=== PATIENT | male | born 1985 | race Caucasian/White ===

== ENCOUNTER → 2017-03-30 | Day surgery (SDC) | payer OTHER ==
[~2017-03-30] VITALS: Ht 182.9 cm; Wt 68.0 kg
[2017-03-30 08:39] VITALS: BP 114/69
[2017-03-30 11:21] VITALS: BP 100/64
== END | disposition home or self-care (01) ==
LOC: GI 08:25 → OR 10:30 → GI 10:30
PROVIDERS: Internal Medicine Gastroenterology
PROC: 0DB68ZX Excision of Stomach, Via Natural or Artificial Opening Endoscopic, Diagnostic (ICD-10-PCS; principal; 2017-03-30 09:30)
DX: R10.9 Unspecified abdominal pain (principal); R11.2 Nausea with vomiting, unspecified
CPT/HCPCS: 43235; J1200; J1610; J2250; J2310; J3010; J3490

== ENCOUNTER 2018-03-26 07:08 | Day surgery (SDC) | payer OTHER ==
[~2018-03-26] VITALS: Ht 182.9 cm; Wt 69.4 kg
[2018-03-26 07:30] VITALS: BP 123/70
[2018-03-26 11:35] VITALS: BP 97/65
== END 2018-03-26 11:30 | disposition home or self-care (01) ==
LOC: GI 07:08 → OR 08:00 → GI 08:30
PROVIDERS: Internal Medicine Gastroenterology
PROC: 0DBE8ZX Excision of Large Intestine, Via Natural or Artificial Opening Endoscopic, Diagnostic (ICD-10-PCS; principal; 2018-03-26 08:30)
DX: R19.7 Diarrhea, unspecified (principal)
CPT/HCPCS: 45378; J1200; J1610; J2250; J2310; J3010; J3490